=== PATIENT | male | born 1990 | race Caucasian/White ===

== ENCOUNTER 2019-04-01 10:13 | Emergency (ER) | payer BC, SELFPAY ==
--- NOTE | 2019-04-01 10:14 | ED.GENADULT ---
HPI - General Adult General Chief complaint: Upper Respiratory Infection Stated complaint: congestion/cough/ Time Seen by Provider: 04/01/19 10:29 Source: patient Mode of arrival: ambulatory Limitations: no limitations History of Present Illness HPI narrative: 28-year-old male patient presents to the [facility] with complaints of cold symptoms for the past 3 to 4 days. Patient denies any fevers or ear pain. Patient states he has had a little bit of a runny nose, stuffy nose slight sore throat with a cough. Patient denies any chest pain or shortness of breath at this time. Patient states the cough is worse when he lays down at night. Patient states he has been trying to take [id number] Tylenol Cold and flu medication. Patient states he does not have a humidifier in his room at this time but was planning on getting one today. Patient denies getting a flu shot. Patient states that he recently got back from [facility]. Patient states he does have a history of sports induced asthma when he was a child but has not had any issues with it since then. Does not have an inhaler at home. Related Data Allergies Allergy/AdvReac Type Severity Reaction Status Date / Time No Known Allergies Allergy Verified 04/01/19 10:23 Review of Systems Review of Systems: Narrative: CONSTITUTIONAL: Denies fever, chills, or sweats. EYES: Denies visual changes, redness, or discharge. ENT: Positive rhinorrhea, congestion, denies sore throat, or otalgia. CARDIOVASCULAR: Denies chest pain, palpitations, or edema. RESPIRATORY: Positive cough, denies dyspnea. GASTROINTESTINAL: Denies abdominal pain, nausea, vomiting, or diarrhea. GENITOURINARY: Denies dysuria or hematuria. SKIN: Denies rash or itching. MUSCULOSKELETAL: Denies back pain, joint pain, or myalgia. NEUROLOGIC: Denies headache, numbness, or weakness. PSYCHIATRIC: Denies anxiety or depression. [facility] Family History Family History Grandparent Diabetes mellitus Mother Depression Sibling Depression Social History Social History Smoking status: Never smoker Second hand tobacco smoke exposure: No Alcohol intake: current Comments At the time of my signature I agree with nursing past medical history, surgical, social, and family history. There is no relevant family history pertinent to the presenting complaint. Exam Narrative: Exam Narrative: GENERAL: Well-appearing, well-nourished, and in no acute distress. HEAD: Normocephalic, atraumatic. No tenderness noted to frontal and maxillary sinuses on palpation. EYES: PERRLA and EOMI. ENT: Nares with erythema and edema noted bilaterally, no rhinorrhea or epistaxis. Mucous membranes moist. Posterior pharynx with no erythema, tonsil enlargement, exudates or lesions present. There is a little bit of fluid behind the right TM noted. NECK: Supple. No lymphadenopathy CHEST: Patient has slight inspiratory wheezing noted to the bilateral lower lobes on inspiration. No respiratory distress. Patient able to talk in clear complete sentences. No labored breathing noted. No tripoding noted. HEART: Regular rate and rhythm. No murmur heard. Normal peripheral pulses. ABDOMEN: Soft, nontender, nondistended, normal active bowel sounds. EXTREMITIES: Normal range of motion. No edema. SKIN: Warm, dry, no rash. NEURO: No focal deficits. Alert and oriented x3. Course Vital Signs Vital signs: Vital Signs Temperature 35.9 C L 04/01/19 10:18 Pulse Rate 65 04/01/19 10:18 Respiratory Rate 18 04/01/19 10:18 Blood Pressure 124/73 04/01/19 10:18 Pulse Oximetry 99 04/01/19 10:18 Temperature 35.9 C L 04/01/19 10:18 Pulse Rate 65 04/01/19 10:18 Respiratory Rate 18 04/01/19 10:18 Blood Pressure 124/73 04/01/19 10:18 Pulse Oximetry 99 04/01/19 10:18 Vital signs reviewed. Medical Decision Making Differential Diagnosis
[2019-04-01 10:18] VITALS: BP 124/73; PULSE 65; RESP 18; TEMP 35.9; O2SAT 99
== END 2019-04-01 10:40 | disposition home or self-care (01) ==
PROVIDERS: Emergency Provider Nurse Practitioner Family
DX: J06.9 Acute upper respiratory infection, unspecified (principal); R06.2 Wheezing
CPT/HCPCS: 99213; G0463

== ENCOUNTER 2023-04-07 08:23 | Emergency (ER) | payer BC, SELFPAY ==
--- NOTE | 2023-04-07 08:28 | ED.URI ---
HPI - URI/Sore Throat General Chief Complaint: Upper Respiratory Infection Stated Complaint: cold / flu like symptoms Time Seen by Provider: 04/07/23 08:28 Source: patient Mode of arrival: ambulatory Limitations: no limitations History of Present Illness HPI Narrative: Patient is a 32-year-old male who presents with 1 week of congestion, intermittent fevers, chills, body aches, and fatigue. Patient has been using [id number] cold and flu relief with no relief. Denies any nausea, vomiting, diarrhea, sore throat, cough. Related Data Allergies Allergy/AdvReac Type Severity Reaction Status Date / Time No Known Allergies Allergy Verified 04/07/23 08:39 Review of Systems Review of Systems: All systems reviewed & are unremarkable except as noted in HPI and below Constitutional: Constitutional: Reports body ache(s), Reports chills, Reports fatigue, Reports fever(s), Denies headache(s), Reports malaise and Denies weakness Eyes: Eyes: Denies blurry vision, Denies itchy eyes and Denies loss of vision ENT: Denies otalgia, Denies headache(s), Reports nasal congestion, Denies sinus pain and Denies sore throat Cardiovascular: Cardiovascular: Denies chest pain, Denies irregular heart rhythm and Denies dyspnea Respiratory: Respiratory: Denies cough and Denies dyspnea Gastrointestinal: Gastrointestinal: Denies abdominal pain, Denies diarrhea, Denies nausea and Denies vomiting Musculoskeletal: Musculoskeletal: Denies back pain, Denies myalgias and Denies arthralgias Integumentary/Breasts: Skin/Breast: Denies pruritus and Denies rash Neurologic: Denies headache(s), Denies loss of vision and Denies weakness Psychiatric: Psychiatric: Reports no additional psychiatric complaints Endocrine: Endocrine: Denies fatigue Allergic/Immunologic: Allergic/Immunologic: Denies itchy eyes PMFSH Past Medical History Medical History Anxiety Attention deficit disorder Kidney stone Surgical History Surgical History H/O arthroscopic knee surgery Family History Family History Grandparent Diabetes mellitus Mother Depression Anemia DVT (deep venous thrombosis) Sibling Depression Grandparent DVT (deep venous thrombosis) Anemia Social History Social History Smoking status: Never smoker Second hand tobacco smoke exposure: No Alcohol intake: never Substance use: never Substance use type: does not use Lack of Transportation: No Lack of Food: Never True Current Housing: I Have Housing Concerned About Future Housing: No Difficulty Paying Gas/Electric Bills: No Difficulty Paying for Meds: No Currently Unemployed: No Education: Bachelor's Degree Difficulty w/ Childcare or Family Care: No Living arrangements: with family Occupation/Education: occupation Gender identity (if verbalized by the patient): Male Spiritual care concerns: No Agree to blood products: Yes Comments At time of signature, agree with nursing past medical, surgical, social and family history. There is no relevant family history pertinent to the presenting complaint. Exam Const: General: cooperative, healthy appearing, comfortable, no acute distress and well nourished Nutritional Appearance: well nourished Orientation/consciousness: patient oriented x3 Limitations: no limitations HENMT: Head: normal to inspection, normocephalic and atraumatic Ears: hearing grossly normal bilaterally, external ears normal, TM's normal bilaterally, EAC's normal and no periauricular adenopathy Face/Nose/Sinus: Normal external nose present, Abnormal mucous membranes and turbinates present erythematous bilateral and diffuse, normal facial exam, sinuses nontender and face symmetric Face and sinus: normal facial exam, sinuses no
[2023-04-07 08:38] VITALS: BP 140/94; PULSE 86; RESP 18; TEMP 36.9; O2SAT 100
[2023-04-07 08:40] VITALS: BP 140/94; PULSE 86; RESP 18; TEMP 36.9; O2SAT 100
== END 2023-04-07 09:13 | disposition home or self-care (01) ==
PROVIDERS: Emergency Provider Nurse Practitioner Family; PCP Family Medicine
DX: J11.1 Influenza due to unidentified influenza virus with other respiratory manifestations (principal); Z20.822 Contact with and (suspected) exposure to COVID-19
CPT/HCPCS: 87426; 87804; 99213; G0463